=== PATIENT | male | born 1975 | race American Indian/Alaskan Native ===

== ENCOUNTER 2016-11-24 21:23 | Emergency (ER) | payer MEDICAID ==
[2016-11-24 22:25] VITALS: BMI 34.8
[2016-11-24 22:45] VITALS: TEMP 98.3
--- NOTE | 2016-11-24 22:54 | ED PDOC ---
Arrival/HPI - General Chief Complaint: High Blood Pressure Time Seen by Provider: 11/24/16 22:28 Historian: Patient - History of Present Illness Narrative History of Present Illness (Text): 11/24/16 22:51 Shaila Edwards is a 41 year old male, with a history of hypertension and hyperlipidemia, presents to the emergency department complaining of elevated blood pressure and slight headache. States he has been non-compliant with his meds. He was evaluated earlier today by PMD for these complaints and was informed that his blood pressure was 195/126. Presented to the emergency department for further evaluation because he still had some slight headache. State he took his meds earlier today evening. Denies any fever, chills, dizziness, chest pain, shortness of breath, nausea, vomiting, diarrhea, or any other complaints at this time. Symptom Onset: Gradual Symptom Course: Improving Severity Level: Mild Activities at Onset: Light Past Medical History - Provider Review Nursing Documentation Reviewed: Yes - Infectious Disease Hx of Infectious Diseases: None - Reproductive Currently : No - Cardiac Hx Cardiac Disorders: Yes Hx Hypertension: Yes - Gastrointestinal Hx Gastrointestinal Disorders: Yes Hx Gastroesophageal Reflux: Yes - Psychiatric Hx Substance Use: No - Anesthesia Hx Anesthesia: No Family/Social History - Physician Review Nursing Documentation Reviewed: Yes Family/Social History: No Known Family HX Smoking Status: Never Smoked Hx Alcohol Use: Yes Hx Substance Use: No Allergies/Home Meds Allergies/Adverse Reactions: Allergies No Known Allergies Allergy (Verified 04/21/16 18:52) Home Medications: Home Meds Medication Instructions Recorded Confirmed Lisinopril [Prinivil] 20 mg PO DAILY 04/21/16 04/21/16 Omeprazole Magnesium [Prilosec] 10 mg PO DAILY 04/21/16 04/21/16 Review of Systems - Physician Review All systems were reviewed & negative as marked: Yes - Review of Systems Constitutional: Normal. absent: Fatigue, Fevers Respiratory: Normal. absent: SOB, Cough, Sputum Cardiovascular: Normal. absent: Chest Pain, Palpitations Gastrointestinal: Normal. absent: Abdominal Pain, Diarrhea, Nausea, Vomiting Neurological: Headache. absent: Dizziness, Focal Weakness Psychiatric: Normal Physical Exam Vital Signs Reviewed: Yes Vital Signs Temp Pulse Resp BP Pulse Ox 11/25/16 00:09 88 18 132/88 99 11/24/16 22:35 98.3 F 85 16 154/100 H 96 Temperature: Afebrile Blood Pressure: Hypertensive Pulse: Regular Respiratory Rate: Normal Appearance: Positive for: Well-Appearing, Non-Toxic, Comfortable Pain Distress: None Mental Status: Positive for: Alert and Oriented X 3 - Systems Exam Head: Present: Atraumatic, Normocephalic Pupils: Present: PERRL Conjunctiva: Present: Normal Mouth: Present: Moist Mucous Membranes Respiratory/Chest: Present: Clear to Auscultation, Good Air Exchange. No: Respiratory Distress, Accessory Muscle Use Cardiovascular: Present: Regular Rate and Rhythm, Normal S1, S2. No: Murmurs Abdomen: Present: Normal Bowel Sounds. No: Tenderness, Distention, Peritoneal Signs Upper Extremity: Present: Normal Inspection. No: Cyanosis, Edema Lower Extremity: Present: Normal Inspection. No: Edema Neurological: Present: GCS=15, CN II-XII Intact, Speech Normal Skin: Present: Warm, Dry, Normal Color. No: Rashes Psychiatric: Present: Alert, Oriented x 3, Normal Insight, Normal Concentration Medical Decision Making ED Course and Treatment: 11/24/16 22:55 Impression: Patient is a 41 year old male who presents to the emergency department complaining of high blood pressure. Plan: -- CT Head -- Reassess and disposition Progress Notes: 11/25/16 00:11 CT Head Without Intravenous Contrast Dictated and Authenticated by: Celestino Virk MD FINDINGS: Brain: No intracranial hemorrhage. No mass. No definite edema. Ventricles: No hydrocephalus. Bones/joints: No acute fracture. Soft tissues: Unremarkable. Sinuses: Scattered minimal mucosal thickening. Few small maxillary retention cysts. Mastoid air cells: No mastoid effusion. Orbits: Unremarkable as visualized. IMPRESSION: 1. No acute intracranial abnormality. 2. Incidental/non-acute findings are described above. 11/25/16 00:12 Blood pressure 132/88 and states that headache has resolved. State he feels comfortable to be discharge home. Advised to present back to emergency department for new or worsening symptoms. - RAD Interpretation Radiology Orders: 11/24/16 22:47 HEAD W/O CONTRAST [CT] Stat - Medication Orders Current Medication Orders: Discontinued Medications Acetaminophen (Tylenol 325mg Tab) Confirm Administered Dose 650 mg .ROUTE .STK- MED ONE Stop: 11/25/16 00:22 Last Admin: 11/25/16 00:24 Dose: Acetaminophen (Tylenol 325mg Tab) 650 mg PO STAT STA Stop: 11/25/16 00:23 Last Admin: 11/25/16 00:24 Dose: 650 mg - Scribe Statement The provider has reviewed the documentation as recorded by the Carmen Harris Provider Attestation: Provider Scribe Attestation: All medical record entries made by the Aggieibe were at my direction and personally dictated by me. I have reviewed the chart and agree that the record accurately reflects my personal performance of the history, physical exam, medical decision making, and the department course for this patient. I have also personally directed, reviewed, and agree with the discharge instructions and disposition. Disposition/Present on Arrival - Present on Arrival Any Indicators Present on Arrival: No History of DVT/PE: No History of Uncontrolled Diabetes: No Urinary Catheter: No History of Decub. Ulcer: No History Surgical Site Infection Following: None - Disposition Have Diagnosis and Disposition been Completed?: Yes Diagnosis: Hypertension Disposition: HOME/ ROUTINE Disposition Time: 00:15 Condition: GOOD Discharge Instructions (ExitCare): Hypertension (ED) Referrals: Kameron Calle MD [Primary Care Provider] - Follow up with primary Forms: [employer] (Amharic)
--- NOTE | 2016-11-24 23:13 | CT ---
EXAM: CT Head Without Intravenous Contrast CLINICAL HISTORY: 41 years old, male; Pain; Headache; Tension; Additional info: [facility] TECHNIQUE: Axial computed tomography images of the head/brain without intravenous contrast. This CT exam was performed using one or more of the following dose reduction techniques: automated exposure control, adjustment of the mA and/or kV according to patient size, and/or use of iterative reconstruction technique. COMPARISON: No relevant prior studies available. FINDINGS: Brain: No intracranial hemorrhage. No mass. No definite edema. Ventricles: No hydrocephalus. Bones/joints: No acute fracture. Soft tissues: Unremarkable. Sinuses: Scattered minimal mucosal thickening. Few small maxillary retention cysts. Mastoid air cells: No mastoid effusion. Orbits: Unremarkable as visualized. IMPRESSION: 1. No acute intracranial abnormality. 2. Incidental/non-acute findings are described above.
[2016-11-25 00:09] VITALS: BP 132/88; PULSE 88; RESP 18; O2SAT 99
== END 2016-11-25 00:25 | disposition home or self-care (01) ==
LOC: ED 21:23
DX: I10 Essential (primary) hypertension (principal); E78.5 Hyperlipidemia, unspecified